=== PATIENT | female | born 1985 | race African-American/Black ===

== ENCOUNTER 2022-05-31 19:00 | Observation (INO) ==
[2022-05-31] MEDS ORDERED: SODIUM CHLORIDE 0.9% 1,000 ML IV STA (21:14)
[2022-05-31] MEDS ORDERED: ONDANSETRON 4 MG/2 ML VIAL IV STA (21:14)
[2022-05-31] MEDS ORDERED: MORPHINE 2 MG/1 ML SYRINGE IV STA (21:15)
[2022-05-31] MEDS ORDERED: HYDROmorphone 1 MG/1 ML SYRINGE ONE (21:40)
[2022-05-31 21:51] LABS: Basophils # 0.1 10*3/uL (0.0-0.2); Basophils % 0.5 % (0.0-0.8); Eosinophils # 0.1 10*3/uL (0.0-0.87); Eosinophils % 0.5 % (0.00-10.9); Hematocrit 37.1 VOL% (35.7-47.0); Hemoglobin 11.9 GM/DL (12.0-16.0); Immature Granulocytes % 0.6 %; Immature Granulocytes Absolute 0.07 #; Lymphocytes # 1.1 10*3/uL (1.4-4.0); Lymphocytes % 8.6 % (21.3-54.2); Mean Corpuscular HGB Conc 32.1 GM/DL (32-36); Mean Corpuscular Volume 77.8 FL (87-102); Mean Platelet Volume 11.2 FL (9.6-12.0); Monocytes # 0.4 10*3/uL (0.11-0.8); Monocytes % 3.3 % (1.7-12.7); Neutrophils % 86.5 % (38.7-73.9); Platelet Count 352 T/CUMM (130-400); Red Blood Count 4.77 MC/CUMM (3.8-5.5); Red Cell Distribution Width 15.1 % (9.3-17.3); White Blood Count 12.4 T/CUMM (4-12)
[2022-05-31] MEDS ORDERED: HYDROmorphone 1 MG/1 ML SYRINGE IV STA (21:51)
[2022-05-31 22:10] LABS: Alanine Aminotransferase 32 U/L (13-56); Albumin 3.4 G/DL (3.4-5.0); Alkaline Phosphatase 74 U/L (45-117); Aspartate Amino Transferase 18 U/L (0-37); Bilirubin,Total < 0.39 MG/DL (0.20-1.00); Blood Urea Nitrogen 12 MG/DL (7-18); Calcium 8.7 MG/DL (8.5-10.1); Carbon Dioxide 24 MMOL/L (21-32); Chloride 109 MMOL/L (98-107); Glucose 86 MG/DL (74-106); Osmolality,Calculated 277.4 MOS/KG (273-304); Potassium 3.6 MMOL/L (3.5-5.1); Sodium 140 MMOL/L (136-145); Total Protein 7.6 G/DL (6.4-8.2)
[2022-05-31] MEDS ORDERED: HYDROmorphone 1 MG/1 ML SYRINGE IV PRN (22:31)
[2022-05-31] MEDS ORDERED: ONDANSETRON 4 MG/2 ML VIAL IV PRN (22:31)
[2022-05-31] MEDS ORDERED: MAGNESIUM HYDROXIDE SUSP 30 ML UDCUP PO PRN (22:31)
[2022-06-01] MEDS: LACTATED RINGERS 1,000 ML IV SCH ×4 (00:20→23:50)
[2022-06-01] MEDS ORDERED: ceFAZolin 2,000 MG/50 ML DUPLEX IV ONE (06:04)
[2022-06-01] MEDS ORDERED: hydroCHLOROthiazide 25 MG TABLET PO SCH (09:00)
[2022-06-01] MEDS: PANTOPRAZOLE 40 MG TABLET PO SCH (09:16)
[2022-06-01] MEDS ORDERED: hydrALAZINE 20 MG/1 ML VIAL IV PRN (09:38)
[2022-06-01] MEDS ORDERED: hydrALAZINE 20 MG/1 ML VIAL IV ONE (09:40)
[2022-06-01] MEDS ORDERED: LIDOCAINE 1% 5 ML VIAL ONE (13:00)
[2022-06-01] MEDS ORDERED: ROPIVACAINE 0.5% 30 ML VIAL ONE (13:00)
[2022-06-01] MEDS ORDERED: LACTATED RINGERS 1,000 ML IV SCH (13:00)
[2022-06-01] MEDS ORDERED: DEXAMETHASONE 4 MG/1 ML VIAL ONE ×2 (13:00→14:18)
[2022-06-01] MEDS ORDERED: LIDOCAINE 2% 5 ML VIAL ONE (13:09)
[2022-06-01] MEDS ORDERED: MIDAZOLAM 2 MG/2 ML VIAL ONE (13:09)
[2022-06-01] MEDS ORDERED: propofoL 200 MG/20 ML VIAL IV ONE (13:09)
[2022-06-01] MEDS ORDERED: fentaNYL 100 MCG/2 ML VIAL ONE (13:09)
[2022-06-01] MEDS ORDERED: SEVOFLURANE 1 UNIT/15 MINUTE INH ONE ×5 (13:14→15:09)
[2022-06-01] MEDS ORDERED: NEOMYCIN/POLYMYXIN/BACITRACIN OINT 28.4 GM TUBE TOP ONE (13:29)
[2022-06-01] MEDS ORDERED: ONDANSETRON 4 MG/2 ML VIAL ONE (14:18)
[2022-06-01] MEDS ORDERED: KETOROLAC 30 MG/1 ML VIAL IV PRN (14:21)
[2022-06-01] MEDS ORDERED: PHENYLEPHRINE 1 MG/10 ML SYRINGE IV ONE (14:45)
[2022-06-01] MEDS ORDERED: LACTATED RINGERS 1,000 ML IV ONE (15:10)
[2022-06-01] MEDS: ceFAZolin 2,000 MG/50 ML DUPLEX IV SCH (21:31)
[2022-06-02] MEDS: ceFAZolin 2,000 MG/50 ML DUPLEX IV SCH (03:32)
[2022-06-02 05:10] LABS: Basophils % 0.1 % (0.0-0.8); Hematocrit 32.4 VOL% (35.7-47.0); Hemoglobin 10.3 GM/DL (12.0-16.0); Immature Granulocytes % 0.5 %; Immature Granulocytes Absolute 0.06 #; Lymphocytes # 0.6 10*3/uL (1.4-4.0); Lymphocytes % 5.1 % (21.3-54.2); Mean Corpuscular HGB Conc 31.8 GM/DL (32-36); Mean Corpuscular Volume 77.5 FL (87-102); Mean Platelet Volume 11.3 FL (9.6-12.0); Monocytes # 0.3 10*3/uL (0.11-0.8); Monocytes % 2.8 % (1.7-12.7); Neutrophils % 91.5 % (38.7-73.9); Platelet Count 305 T/CUMM (130-400); Red Blood Count 4.18 MC/CUMM (3.8-5.5); White Blood Count 11.9 T/CUMM (4-12)
[2022-06-02 05:29] LABS: Calcium 8.9 MG/DL (8.5-10.1); Osmolality,Calculated 274.8 MOS/KG (273-304); Potassium 3.5 MMOL/L (3.5-5.1)
[2022-06-02 05:51] LABS: Lymphocytes 7 % (20-55); Platelet Estimate Normal; Total Cells Counted 100
[2022-06-02] MEDS: PANTOPRAZOLE 40 MG TABLET PO SCH (08:29)
[2022-06-02] MEDS ORDERED: FONDAPARINUX 2.5 MG/0.5 ML SYRINGE SUBCUT SCH (08:30)
[2022-06-02] MEDS ORDERED: NICOTINE 21 MG/24 HR PATCH TRANSDERM SCH (09:00)
[2022-06-02] MEDS ORDERED: amLODIPine 10 MG TABLET PO SCH (09:00)
[2022-06-02] MEDS ORDERED: LOSARTAN 25 MG TABLET PO SCH (09:00)
[2022-06-02 09:34] LABS: % Iron Saturation 4.9 % (18-50)
[2022-06-02 09:40] LABS: Folate 9.93 NG/ML (5.38-24.0)
[2022-06-02 11:42] VITALS: BP 171/97
[2022-06-02] MEDS ORDERED: LOSARTAN 50 MG TABLET PO SCH (15:00)
[2022-06-02] MEDS ORDERED: amLODIPine 10 MG TABLET PO ONE (15:00)
[2022-06-03] MEDS ORDERED: LOSARTAN 50 MG TABLET PO SCH (09:00)
== END 2022-06-02 13:01 | disposition home or self-care (01) ==
LOC: N.3E 19:00 → N.ED 19:00 → N.3E 23:08
PROVIDERS: ADMIT Orthopaedic Surgery; ATTEND Orthopaedic Surgery